=== PATIENT | female | born 1935 | race American Indian/Alaskan Native ===

== ENCOUNTER 2018-12-08 09:53 | Outpatient (CLI) | payer MEDICARE ==
[2018-12-08] MEDS ORDERED: KINEVAC IV ONE ×2 (11:20→11:24)
--- NOTE | 2018-12-08 13:51 | Nuclear Medicine Report ---
NUCLEAR MEDICINE HEPATOBILIARY SCAN: 12/08/18 CLINICAL: Right upper quadrant abdominal pain. TECHNIQUE: 5.0mCi technetium 99m Choletec was injected intravenously. Serial images were obtained up to 60 minutes. 1.86 mcg of Kinevac was injected a slow infusion at one hour and the gallbladder ejection fraction was measured. FINDINGS: Normal activity in the liver, bile ducts and small bowel. Normal gallbladder activity with appearance of the gallbladder at 15 minutes. However, abnormal gallbladder ejection fraction with EF 8% at 10 minutes, 1% at 20 minutes and 5% at 30 minutes. In addition, the index pain was reproduced with injection of cholecystokinin. IMPRESSION: No evidence of acute cholecystitis. However, abnormal gallbladder ejection fraction suggesting biliary dyskinesia. Reproduction of pain with the CCK injection may also indicate chronic cholecystitis.
== END 2018-12-08 09:54 | disposition home or self-care (01) ==
LOC: NM 09:53
PROVIDERS: ATTEND Family Medicine
DX: R10.10 Upper abdominal pain, unspecified (principal)
CPT/HCPCS: 78227; A9537; J2805